=== PATIENT | female | born 1960 | race Caucasian/White ===

== ENCOUNTER 2018-09-10 06:48 | Day surgery (SDC) | payer OTHER ==
[~2018-09-10 06:48] MED LIST: BRIMONIDINE TARTRATE 0.2% OPTH SOL OP PRN; BSS WITH EPINEPHRINE OP ONE; DEX-MOXI-KETOR OPTH INJ 1/0.5/0.4 MG/ML IO ONE; LIDOCAINE 1% 20 ML MDV ID STA; LIDOCAINE 1%/PHENYLEPHRINE 1.5% BSS (SURGERY) INTRAOCULA ONE; ZOFRAN 4 MG/2 ML IVP ONE
[2018-09-10] MEDS: TETRACAINE 0.5% UNIT-DOSE OP PRN ×2 (07:05→07:54)
[2018-09-10] MEDS: BETADINE OPTH PREP OP PRN ×2 (07:05→07:54)
[2018-09-10] MEDS: CYCLOGYL 2% OPTH OP PRN ×3 (07:05→07:15)
[2018-09-10] MEDS ORDERED: VERSED ONE (07:45)
[2018-09-10] MEDS ORDERED: SUBLIMAZE ONE (07:45)
[2018-09-10 13:33] VITALS: TEMP 97.9
[2018-09-11 16:58] VITALS: BP 132/68
== END 2018-09-10 08:40 | disposition home or self-care (01) ==
LOC: SURG 06:48
PROVIDERS: ATTEND Ophthalmology
DX: H25.811 Combined forms of age-related cataract, right eye (principal)

== ENCOUNTER 2018-09-30 07:41 | Day surgery (SDC) | payer OTHER ==
[~2018-09-30 07:41] MED LIST changes: -BSS WITH EPINEPHRINE OP ONE; -DEX-MOXI-KETOR OPTH INJ 1/0.5/0.4 MG/ML IO ONE; -LIDOCAINE 1%/PHENYLEPHRINE 1.5% BSS (SURGERY) INTRAOCULA ONE
[2018-09-30] MEDS: TETRACAINE 0.5% UNIT-DOSE OP PRN ×3 (08:25→09:35)
[2018-09-30] MEDS: BETADINE OPTH PREP OP PRN ×2 (08:25→09:25)
[2018-09-30] MEDS: CYCLOGYL 2% OPTH OP PRN ×3 (08:25→08:35)
[2018-09-30] MEDS ORDERED: ZOFRAN 4 MG/2 ML ONE (09:31)
[2018-09-30] MEDS ORDERED: VERSED ONE (09:31)
[2018-09-30] MEDS ORDERED: SUBLIMAZE ONE (09:31)
[2018-09-30] MEDS: LIDOCAINE 1%/PHENYLEPHRINE 1.5% BSS (SURGERY) INTRAOCULA ONE ×2 (09:32→09:35)
[2018-09-30] MEDS: BSS WITH EPINEPHRINE OP ONE ×2 (09:32→09:35)
[2018-09-30] MEDS: DEX-MOXI-KETOR OPTH INJ 1/0.5/0.4 MG/ML IO ONE ×2 (09:32→09:35)
[2018-09-30 10:46] VITALS: BP 140/60
[2018-09-30 13:12] VITALS: TEMP 97.9
== END 2018-09-30 10:20 | disposition home or self-care (01) ==
LOC: SURG 07:41
PROVIDERS: ATTEND Ophthalmology
DX: H25.813 Combined forms of age-related cataract, bilateral (principal)